=== PATIENT | male | born 1965 | race Caucasian/White ===

== ENCOUNTER 2024-04-03 15:01 | Emergency (ER) | payer MEDICAID, OTHER ==
[~2024-04-03] VITALS: Ht 172.7 cm; Wt 90.0 kg
[2024-04-03 15:07] VITALS: O2SAT 94
[2024-04-03] MEDS: SODIUM CHLORIDE 0.9% 1,000 ML IV ONE (16:00)
[2024-04-03 16:31] LABS: BASOPHILS % 0.8 % (0.0-2.0); DIFFERENTIAL COMMENT 0; EOSINOPHILS % 1.5 % (0.0-5.0); HEMATOCRIT. 48.2 % (42.0-52.0); HEMOGLOBIN. 15.7 g/dL (14.0-18.0); LYMPHOCYTES % 19.7 % (20.0-50.0); MEAN CORPUSCULAR HEMOGLOBIN 29.7 pg (28.0-32.0); MEAN CORPUSCULAR HGB CONC 32.6 g/dL (31.0-37.0); MEAN CORPUSCULAR VOLUME 91.1 fL (80.0-94.0); MEAN PLATELET VOLUME 10.3 fl (7.4-10.4); MONOCYTES % 9.9 % (2.0-8.0); NEUTROPHILS % 68.1 % (40.0-76.0); PLATELET 350 x1000/uL (130-400); RED BLOOD CELL COUNT 5.29 mill/uL (4.7-6.1); RED CELL DISTRIBUTION WIDTH 13.8 % (11.6-14.6); WHITE BLOOD COUNT 10.6 x1000/uL (4.5-11.0)
[2024-04-03 16:41] LABS: CALCIUM 9.6 mg/dL (8.7-10.4); CARBON DIOXIDE 27 mEq/L (21-32); CHLORIDE 103 mEq/L (98-107); POTASSIUM 5.1 mEq/L (3.5-5.1); SODIUM 137 mEq/L (136-145)
[2024-04-03 16:45] LABS: CREATININE 1.1 mg/dL (0.6-1.3); GLUCOSE 202 mg/dL (70-105); UREA NITROGEN BLOOD 10 mg/dL (9-23)
[2024-04-03 16:47] LABS: PROTHROMBIN TIME 11.6 sec (9.6-11.0)
[2024-04-03 17:05] LABS: ETHANOL BLOOD < 10 mg/dL (<10); TROPONIN I HIGH SENSITIVITY < 4 ng/L (3.0-53)
[2024-04-03 17:22] VITALS: BP 125/77; PULSE 94; RESP 19; TEMP 36.6; O2SAT 97
== END 2024-04-03 17:45 | disposition home or self-care (01) ==
LOC: ER 15:01
DX: R55 Syncope and collapse (principal); S09.8XXA Other specified injuries of head, initial encounter; E11.9 Type 2 diabetes mellitus without complications; Z88.2 Allergy status to sulfonamides; Z79.899 Other long term (current) drug therapy; W22.8XXA Striking against or struck by other objects, initial encounter; Y93.89 Activity, other specified; Y92.89 Other specified places as the place of occurrence of the external cause; Y99.8 Other external cause status
CPT/HCPCS: 80048; 80320; 83880; 85025; 85610; 86850; 86900; 86901; 84484; 36415; 71045; 70450; 93005; 96360; 99285; J7030; G0480